=== PATIENT | female | born 1940 | race Caucasian/White ===

== ENCOUNTER 2016-04-09 08:09 | Day surgery (SDC) | payer MEDICARE ==
[~2016-04-09] VITALS: Ht 162.6 cm; Wt 90.7 kg
[~2016-04-09 08:09] MED LIST: CHLORTHALIDONE25 MG PO; PREDNISONE10 MG PO; SYNTHROID25 MCG PO
[2016-04-09] MEDS ORDERED: ATIVAN1 MG PO (10:02)
[2016-04-09 10:05] VITALS: BP 148/95; Ht 162.6 cm; Wt 90.7 kg
[2016-04-09 10:09] LABS: HEMATOCRIT 47.8 % (36.0-48.0); HEMOGLOBIN 14.9 g/dL (12-16); MCH 29.2 pg (26.0-34.0); MCHC 31.2 g/dL (31.0-37.0); MCV 93.7 fL (80.0-100.0); MEAN PLATELET VOLUME 10.5 fL (7.4-10.4); RBC 5.1 10x6/uL (4.00-5.40); RDW 15.4 % (11.5-14.5); WBC 11.5 10x3/uL (4.8-10.8)
[2016-04-09 10:16] LABS: CALC OSMOLALITY 290 mosm/kg (275-300); CALCIUM 9.2 mg/dL (8.5-10.1); CARBON DIOXIDE 35.9 mmol/L (21.0-32.0); CHLORIDE - SERUM 106 mmol/L (98-107); CREATININE - SERUM 0.5 mg/dL (0.6-1.3); GLUCOSE 106 mg/dL (74-106); POTASSIUM - SERUM 3.7 mmol/L (3.5-5.1); SODIUM 145 mmol/L (136-145); UREA NITROGEN 17 mg/dL (7-18); eGFR NON AFRICAN AMERICAN > 90 mL/min (90-120)
--- NOTE | 2016-04-09 10:47 | NUR ---
[address] DE JESUS TO BE SURE NEEDED DECADRON TAKEN PREDNISONE 10 MG AT 0400AM.
--- NOTE | 2016-04-09 10:47 | NUR ---
1040 N/S WITH DECADRON GIVEN VERY SLOWLY.
--- NOTE | 2016-04-09 15:43 | NUR ---
1500-PT. ESCORTED VIA WHEELCHIAR TO PERSONAL CAR, LEFT WITH FRIEND DRIVING.
--- NOTE | 2016-04-12 14:56 | HP ---
PATIENT: MARIELY CHAVEZ MEDICAL RECORD: [id number] ACCOUNT: [id number] LOCATION:[facility] : 39 ADMISSION DATE: 04/09/16 HISTORY AND PHYSICAL EXAMINATION PREOPERATIVE HISTORY AND PHYSICAL HISTORY OF PRESENT ILLNESS: Mrs. Chavez is a 75-year-old female. 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 She has just developing exercise intolerance and stridor. 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 PAST MEDICAL HISTORY: Include hypertension, epidermolysis bullosa and hypothyroidism. PAST SURGICAL HISTORY: Include endoscopy and repair of laryngeal stenosis on multiple occasions. CURRENT MEDICATIONS: Prednisone and Synthroid. ALLERGIES: No known drug allergies. PHYSICAL EXAMINATION: GENERAL: She is healthy-appearing. She has got some facial changes consistent with chronic steroid use. She has got some mild biphasic stridor ____ down the olson. EYES: Sclerae and conjunctivae are normal. EARS: Canals and TMs are normal. NOSE: No mass, polyps or drainage. ORAL CAVITY AND OROPHARYNX: Normal. NECK: Normal. CHEST: Clear. CARDIOVASCULAR: Regular rate and rhythm, no murmur. EXTREMITIES: Normal. Flexible laryngoscopy reveals a posterior glottic web, airways down to about 50%, not as bad as she has been at some point in the past, but she is getting symptomatic. Cord mobility is good. Anterior commissures good. IMPRESSION: Glottic stenosis, epidermolysis bullosa. PLAN: Revision of posterior laryngeal web. TRANSINT:[id number] Voice Confirmation ID: [id number] DOCUMENT ID: [id number] HISTORY AND PHYSICAL [id number] MARIELY CHAVEZ ARIANA HOOVER MD at 1456 CC: [id number] DICTATION DATE: 04/07/16 1436 RAILWAY STATION MANAGER: 04/07/161915 [facility] 04/09/[address] [address]
--- NOTE | 2016-04-12 14:57 | OP ---
PATIENT NAME: MARIELY GARAY MEDICAL RECORD: [id number] :38 LOCATION:[facility] ADMISSION DATE: SURGEON: NAVI DEJESUS MD DATE OF OPERATION: 04/09/2016 PREOPERATIVE DIAGNOSIS: Laryngeal stenosis and stridor. POSTOPERATIVE DIAGNOSIS: Laryngeal stenosis and stridor. PROCEDURE: Microsuspension laryngoscopy and division of laryngeal web. SURGEON: Navi Dejesus MD. ANESTHESIA: General by mask and jet ventilation. SPECIMENS: None. COMPLICATIONS: None. DISPOSITION: Recovery stable. DESCRIPTION OF PROCEDURE: She is brought to the operating room and placed in supine position. She had an IV, she was sedated via mask. The table was turned 90 degrees. She was sedated. Oral cavity and oropharynx were examined, a plastic upper tooth guard was placed. The anterior commissure ____ was inserted in the right side of the mouth and was used to examine the supraglottic larynx, which was normal. The hypopharynx vallecula, piriforms, the post-cricoid area are all normal. Lifted up the epiglottis and got a good view of the larynx and ____ was used to stabilize the laryngoscope. She was very easy to visualize the entire larynx. She had a large posterolaterally based laryngeal web with a small anterior laryngeal airway. Some lidocaine was sprayed on the cords. The microscope was brought in with a 400-mm lens. A small suction was used to evacuate any secretions there and upbiting scissors were used to divide from just about the mid portion of where the airway should be through that laryngeal web, posterior and laterally towards the left side ____ was made in that to extended it open and create a large opening this allowed abduction of the cords much more with the respiration. The jet ventilator with oxygen has been used during this time, it was attached to the right side of the laryngoscope. Subglottic and upper tracheal airway looked just perfectly normal. There was really no significant bleeding, nothing was passed through the cords. Once this was wide open, all the instrumentation was removed and the plastic tooth guard was removed. She was awakened and transported to recovery in good condition. No complications. TRANSINT:[id number] Voice Confirmation ID: [id number] DOCUMENT ID: [id number] NAVI DEJESUS MD at 1452 CC: [id number] DICTATION DATE: 04/09/16 1427 MAC ARTIST: 04/09/16 1645 [facility] 04/09/16 [facility] [address] [id number]
== END 2016-04-09 15:00 | disposition home or self-care (01) ==
LOC: D.OPS 08:09 → D.PAN 10:00 → D.OPS 10:00 → D.PAN 10:15 → D.OPS 10:15 → D.PAN 10:30 → D.OPS 15:00
PROVIDERS: Anesthesiology
DX: J38.6 Stenosis of larynx (principal); R06.1 Stridor; Q81.9 Epidermolysis bullosa, unspecified; I10 Essential (primary) hypertension; E03.9 Hypothyroidism, unspecified; Z79.52 Long term (current) use of systemic steroids; Z79.899 Other long term (current) drug therapy

== ENCOUNTER → 2016-07-27 10:17 | Outpatient (CLI) | payer MEDICARE ==
[2016-04-09 10:05] VITALS: BMI 34.4
[~2016-07-27 10:17] MED LIST changes: +ATIVAN1 MG PO
== END | disposition home or self-care (01) ==
LOC: D.LAB 10:17 → D.RT 11:00
DX: J44.9 Chronic obstructive pulmonary disease, unspecified (principal)

== ENCOUNTER → 2016-10-19 08:43 | Outpatient (CLI) | payer MEDICARE ==
[2016-04-09 10:05] VITALS: BMI 34.4
--- NOTE | ~2016-10-19 | EC ---
PATIENT:MARIELY GARAY DATE OF SERVICE: 10/19/16 SEX: F MEDICAL RECORD: [id number] DATE OF : 38 LOCATION:D[facility] AGE OF PATIENT: 75 ADMISSION DATE: 10/19/16 REFERRING PHYSICIAN: INTERPRETING PHYSICIAN: DENISHA BRYANT MD ECHOCARDIOGRAM REPORT ECHO CHARGES 4 ECHO COMPLETE CLINICAL DIAGNOSIS: TACHYCARDIA HX OF HTN ECHOCARDIOGRAPHIC MEASUREMENTS (adult normal given) AC root (d.<3.7cm) 3.5 cm LV Septum d (<1.2 cm> 1.5 cm Valve Excursion 1.8 cm LV Septum (systole) 1.7 cm Left Atria (s.<4.0cm> 3.8 cm LVPW d(<1.2cm) 1.5 cm RV (d.<2.3cm) 3.1 cm LVPW (sytole) 1.7 cm LV diastole(<5.6CM) 4.6 cm MV E-F(>70mm/sec) cm LV systole 3.1 cm LVOT Diameter 1.9 cm MV exc.(>10mm) 1.0 cm Est.ejection fraction (50-75%) % Pericardial Effusion N DOPPLER: LVIT cm/sec A 68.0 cm/sec E 55.0 cm/sec LA cm/sec RVSP 23 mmHg LVOT 112 cm/sec AOP1/2T m/s Asc. Ao 155 cm/sec RVOT 102 cm/sec RA cm/sec PA 115 cm/sec AV Gradient Peak 9.63 mmHg AV Mean 4.98 mmHg AV Area 1.8 cm MV Gradient Peak 8.42 mmHg MV Mean 3.25 mmHg MV Area cm COMMENTS: PA 115 CM/SEC OR 5.25 [facility] RVSP 23 [facility] Investigator: 2 JOSE STALEY Panama Hat Blocker: 1 Dr. Bryant TAPE# PACS TWO-DIMENSIONAL ECHOCARDIOGRAM WITH DOPPLER 1. Left ventricular chamber size is within normal limits. Left ventricular systolic function is normal. Overall ejection fraction is estimated at 50 percent. 2. Left atrium, right atrium, and right ventricular chamber sizes are within normal limits. 3. Valvular structures have normal structure and motion. 4. Doppler interrogation reveals mild mitral regurgitation, mild tricuspid regurgitation; no other valvular insufficiency or stenosis. 5. No evidence of pericardial effusion or left ventricular thrombus. ECHOCARDIOGRAM REPORT [id number] TANISHA,DENISHA VELÁSQUEZ MD CC: [id number] DICTATION DATE: 10/19/16 1500 PROSECUTING ATTORNEY: DM 10/20/16 1530 DEP CLI 10/19/16 [address] [id number] [place] [address]
== END | disposition home or self-care (01) ==
LOC: D.ECHO 08:43
DX: R00.0 Tachycardia, unspecified (principal)